=== PATIENT | female | born 1990 | race Caucasian/White ===

== ENCOUNTER 2019-06-09 14:39 | Emergency (ER) | payer MEDICAID, SELFPAY ==
[2019-06-09 14:41] VITALS: BP 127/66; PULSE 53; RESP 16; TEMP 36.4; O2SAT 99
[2019-06-09] MEDS: Acetaminophen 325 MG Tablet 650 MG PO (15:11)
[2019-06-09 15:21] LABS: Bacteria 0 SEEN /hpf (None Seen); Mucous, Urine 0 SEEN /hpf (<or=2+); Squamous Epithelial Cells - UA 0 SEEN /hpf (5-10)
[2019-06-09 15:31] LABS: Color, Urine Yellow (Yellow); Glucose, Dipstick Normal (Normal); Ketone-Dipstick Negative (Negative); Leukocyte Esterase-Dipstick 500 /ul (Negative); Nitrite-Dipstick Negative (Negative); Occult Blood-Urine 250 /ul (Negative); Protein-Dipstick 100 mg/dl (Negative); Specific Gravity, Urine 1.015 (1.002-1.030); Urine Bilirubin Dipstick Negative (Negative); Urine Clarity Sl. Cloudy (Clear); Urine Urobilinogen Normal (Normal)
[2019-06-09 15:33] LABS: Internal QC Validated? YES +Cl - CLEAR BKGD; Pregnancy, Urine Negative Negative
[2019-06-09 15:41] LABS: Red Blood Cells-Urine 10-25 SEEN /hpf (0-5); White Blood Cells >100 SEEN /hpf (0-5)
--- NOTE | 2019-06-09 15:59 | ED.VIS.GEN ---
History of Present Illness Informant: Patient Onset: Yesterday Context: Gradual Onset Timing: Continuous Quality: burning Location: suprapubic Current Severity: Moderate Maximum Severity: Moderate Worsened by: urination Relieved by: rest Associated Symptoms: back pain Narrative: 29-year-old female presents to the emergency department with 24 hours of dysuria, urinary frequency and urgency and some low back pain. No hematuria. No vaginal bleeding or discharge. No fevers. No vomiting or diarrhea. She has a history of urinary tract infection and states that this feels similar. She is not recently been on any antibiotics. Her last normal menstrual period was 3 weeks ago. Prior similar symptoms: Yes Recent Illness/Hospitalization: No <Kevin Rawls - Last Filed: 06/09/19 16:02> <Mary Call - Last Filed: 06/09/19 16:44> Chief Complaint: Complaint Past Medical History Prior records reviewed: Yes Past Medical History: None Surgical History: no surgical history Lives: With Family Smoking Status: Current every day smoker Alcohol: Occasional <Kevin Rawls - Last Filed: 06/09/19 16:02> <Mary Call - Last Filed: 06/09/19 16:44> - Allergies and Home Meds Allergies/Adverse Reactions: Allergies No Known Allergies Allergy (Verified 06/09/19 14:40) Primary Care Physician: Robb Trejo MD [NON-STAFF] - Review of Systems All systems negative except as indicated General: Denies: Chills, Fever Gastrointestinal: Denies: Abdominal pain, Nausea, Vomiting, Diarrhea Genitourinary: Reports: Dysuria, Frequency. Denies: Hematuria Musculoskeletal: Reports: Back pain <Kevin Rawls - Last Filed: 06/09/19 16:02> Physical Exam Vital Signs/Narrative: Vital Signs Temp Pulse Resp BP Pulse Ox 06/09/19 14:41 97.5 F L 53 L 16 127/66 H 99 Inital Vital Signs reviewed: Yes General: Well nourished, Well developed, No Acute Distress Head: Normocephalic, Atraumatic Eyes: Perrl, EOMI ENT: Moist mucous membranes Neck: Supple, Nontender Cardiovascular: Regular rate, Regular rhythm, No murmurs Respiratory: No distress, CTA bilaterally, Chest nontender Abdomen: Soft, Nontender, Nondistended, Normal bowel sounds, No masses Back: Nontender, Normal Inspection. Negative for: CVA tenderness Extremities: Nontender, No edema Skin: Normal color, No rash Neurological: Alert, Oriented x3 Psychological: Normal affect <Kevin Rawls - Last Filed: 06/09/19 16:02> Vital Signs/Narrative: Vital Signs Temp Pulse Resp BP Pulse Ox 06/09/19 14:41 97.5 F L 53 L 16 127/66 H 99 <Mary Call - Last Filed: 06/09/19 16:44> Diagnostic/Tx/Re-eval - Medical Decision Making Patient's pain was treated with Tylenol. test is negative. Urinalysis shows 500 leukocyte Estrace, 10-25 red blood cells, greater than 100 white blood cells, but no bacteria. Patient denies to me vaginal discharge. We will send a GC and chlamydia culture by urine. She will follow-up for the results of this. She will be placed on Macrobid. Return precautions to the emergency department were reviewed and the patient voiced understanding. Patient states for 5 Laboratory Tests 06/09/19 06/09/19 Range/Units 15:00 15:00 Urine Color Yellow (Yellow) Urine Clarity Sl. Cloudy (Clear) Urine pH 7.0 (5.0 - 8.0) Ur Specific [place] 1.015 (1.002-1.030) Urine Protein 100 H (Negative) mg/dl Urine Glucose (UA) Normal (Normal) mg/dl Urine Ketones Negative (Negative) mg/dl Urine Occult Blood 250 H (Negative) /ul Urine Nitrite Negative (Negative) Urine Bilirubin Negative (Negative) mg/dL Urine Urobilinogen Normal (Normal) mg/dl Ur Leukocyte Esterase 500 H (Negative) /ul Urine RBC 10-25 SEEN (0-5) /hpf Urine WBC >100 SEEN (0-5) /hpf Ur Squamous Epith Cells 0 SEEN (5-10) /hpf Urine Bacteria 0 SEEN (None Seen) /hpf Urine Mucus 0 SEEN (<or=2+) /hpf Urine Test Negative Negative <Kevin Rawls - Last Filed: 06/09/19 16:02> - Medical Decision Making Patient seen and evaluated with PA. Patient reports bilateral back pain in the CVA region for the last several weeks. She noted dysuria that started last evening. No fever or chills. No obvious blood in her urine. Physical exam is grossly unremarkable. Abdomen is soft with no focal tenderness. Back examination reveals tenderness even with palpation of the musculature in the paraspinal muscles. No midline tenderness. Urinalysis does show grade 100 white cells. She will be given antibiotics but also have GC and Chlamydia testing sent. Disposition: Discharge <Mary Call - Last Filed: 06/09/19 16:44> ED Disposition <Kevin Rawls - Last Filed: 06/09/19 16:02> <Mary Call - Last Filed: 06/09/19 16:44> - Plan for ED Patient: Disposition: Home or Assisted Living Instructions: Bladder Infection, Female (Adult) Prescriptions: Nitrofurantoin Macrocrystals [Macrobid] 100 mg PO Q12 #14 cap Prescription Printed Referrals: Robb Trejo MD [NON-STAFF] -
[2019-06-09 18:47] LABS: Chlamydia Trachomatis by PCR Negative (Negative); Neisserai gonorrhoeae by PCR Negative (Negative); Probe Check PASS; Sample Adequacy Control PASS; Specimen Processing Control PASS
== END 2019-06-09 16:19 | disposition home or self-care (01) ==
PROVIDERS: Emergency Provider Physician Assistant Medical
DX: M54.5 Low back pain (principal); R30.0 Dysuria; R39.15 Urgency of urination; R35.0 Frequency of micturition; Z87.440 Personal history of urinary (tract) infections; F17.200 Nicotine dependence, unspecified, uncomplicated
CPT/HCPCS: 81001; 81025; 87491; 87591; 99283